=== PATIENT | female | born 1980 | race Caucasian/White ===

== ENCOUNTER 2016-07-13 18:24 | Emergency (ER) | payer MEDICAID ==
[~2016-07-13] VITALS: Ht 154.9 cm; Wt 55.1 kg
[2016-07-13 18:28] VITALS: RESP 18; TEMP 98.6; Ht 154.9 cm; Wt 55.1 kg
[2016-07-13] MEDS ORDERED: PARO10TA16 PO (18:43)
[2016-07-13] MEDS ORDERED: GABA-354 PO (18:44)
[2016-07-13] MEDS ORDERED: DEXAMETHASONE 4mg/ml - 1ml INJECTION IM ONE (19:00)
[2016-07-13] MEDS ORDERED: TRAMADOL 50mg TAB #6 (PrePack) SENT HOME ONE (19:00)
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
[2016-07-13] MEDS ORDERED: TRAM50TA4 PO (19:13)
[2016-07-13 19:27] VITALS: BP 114/66; PULSE 72; O2SAT 100
== END 2016-07-13 19:27 | disposition home or self-care (01) ==
LOC: ED 18:24
DX: M54.5 Low back pain (principal); M25.562 Pain in left knee; M25.561 Pain in right knee; G89.29 Other chronic pain
CPT/HCPCS: 96372; 99283; J1100